=== PATIENT | male | born 2000 | race American Indian/Alaskan Native ===

== ENCOUNTER 2022-03-12 09:05 | Emergency (ER) | payer SELFPAY ==
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
[2022-03-12 14:15] VITALS: BP 129/73
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
== END 2022-03-12 15:52 | disposition home or self-care (01) ==
LOC: ED 09:05
DX: F20.89 Other schizophrenia (principal); Z87.891 Personal history of nicotine dependence; Z88.8 Allergy status to other drugs, medicaments and biological substances
CPT/HCPCS: 99283